=== PATIENT | female | born 1985 | race Caucasian/White ===

== ENCOUNTER 2024-03-10 22:07 | Inpatient (IN) ==
--- OUTSIDE RECORDS SUMMARY | 2024-03-10 22:12 | External Medical Summary | Summary of Care ---
Author Name Unknown Organization [facility] Address [address] [place] [address] Phone [phone] Care Team Providers Care Utilization Management Manager Name Role Phone Aníbal Chen MD Primary Care Provider [phone] Reason for Visit * Reason Onset Date Comments FYI 03/09/2024 Encounter Details Date Type Department Care Team (Late st Contact Info) Description 03/09/2024 Telephone Palliative Medicine [facility] [address] [address] Yumiko Fischer MD [address] [place] [address] FYI Allergies Active Allergy Reactions Criticality Noted Date Comments Morphine Edema face/lips/tongue High 12/06/2023 Naloxone Edema face/lips/tongue High 12/06/2023 headaches Penicillins 12/21/2007 Penicillins Hives 12/06/2023 Sulfa Antibiotics 12/21/2007 Sulfa Antibiotics Hives 12/06/2023 documented as of this encounter (statuses as of 03/09/2024) Medications Medication Sig Dispensed Refills Start Date End Date Status QUEtiapine Fumarate 100 MG Oral Tablet (SEROquel) Take 1 Tablet by mouth at bedtime. 10/24/2023 Active Venlafaxine HCl ER 75 MG Oral Capsule Extended Release 24 Hour (Effexor XR) Take 1 Capsule by mouth in the morning and 1 Capsule before bedtime. 10/11/2023 Active Polyethylene Glycol 3350 17 GM/SCOOP Oral Powder (Miralax) mix and take 17 g by mouth in the morning. 850 g 8 02/08/2024 Active Gabapentin 300 MG Oral Capsule (Neurontin)Indicat ions:Cancer related pain Take 1 Capsule by mouth in the morning and 1 Capsule at noon and 1 Capsule before bedtime. 60 Capsule 02/08/2024 Active Additional Information Patient not taking.Reported on 02/10/2024 Famotidine 20 MG Oral Tablet (Pepcid) Take 1 Tablet by mouth in the morning. 90 Tablet 02/08/2024 Active Additional Information Patient not taking.Reported on 02/10/2024 Prochlorperazine Maleate 10 MG Oral Tablet (Compazine)Indicat ions:Malignant neoplasm of anal canal (HCC) Take 1 Tablet by mouth every 6 hours as needed for Nausea. 30 Tablet 3 02/17/2024 Active documented as of this encounter (statuses as of 03/09/2024) Active Problems Problem Noted Date Diagnosed Date Malignant neoplasm of anal canal 02/16/2024 Encounter for antineoplastic chemotherapy 2023 Anal polyp 01/11/2024 Food insecurity 01/02/2024 Overview: Per [facility] Protocol Anxiety 12/06/2023 Anal fissure 12/06/2023 Rectal bleeding 12/06/2023 Moderate episode of recurrent major depressive d isorder 12/06/2023 Bipolar 2 disorder, major depressive episode Opioid dependence with opioid-induced disorder 0 12/06/2023 Abnormal cervical Papanicolaou smear 12/06/2023 Pelvic pain in female 12/06/2023 Asthma with severity to be determined 11/17/2009 Overview: Per Asthma Taxonomy ICD-10 update of inactive term Major depressive disorder Overview: ICD-10 update of inactive term Bipolar I disorder, most recent episode depresse d Overview: Bipolar Affective Disorder Depressed-Unspecified Panic disorder TATTOOS Tobacco use disorder documented as of this encounter (statuses as of 03/09/2024) Resolved Problems Problem Noted Date Diagnosed Date Resolved Date Asthma, allergic 11/17/2009 documented as of this encounter (statuses as of 03/09/2024) Immunizations Name Administration Dates Next Due COVID-19 mRNA, LNP-s, No Pre serve, 2-Dose Series (Moderna) 07/18/2021 COVID-19 mRNA, LNP-s, No Pre serve, 2-Dose Series (Pfizer) 10/27/2020,10/05/2020 Seasonal Influenza, Trivalent, (IIV3), PF, (Fluz one) 01/30/2024 TD - Tetanus/Diptheria (ADULT) 05/23/2003 documented as of this encounter Social History Tobacco Use Types Packs/Day Years Used Date Smoking Tobacco: Every Day Cigarettes 1 8 Passive Smoke Exposure: Current Smokeless Tobacco: Never Comments:started age 14 Alcohol Use Standard Drinks/Week Comments Not Currently 0 (1 standard drink = 0.6 oz pur e alcohol) social PHQ-2 Answer Date Recorded PHQ Adult Total Score 2 12/06/2023 Hunger Vital Sign Answer Date Recorded Within the past 12 months, y ou worried that your food would run out before you got the money to buy more. Often true 12/06/19 24 Within the past 12 months, t he food you bought just didn't last and you didn't have money to get more. Often true 12/06/2023 Childcare Answer Date Recorded Do you feel overwhelmed with taking care of a child, family member or friend? No 12/06/2023 Does your family need help f inding childcare? (Household - for ages 0-17 years) Not on file 12/06/2023 Clothing Answer Date Recorded Have you been unable to get clothing when it was really needed? Yes 12/06/2023 Is your family able to get c lothes or diapers when needed? (Household - for ages 0-17 years) Not on file 12/06/2023 Personal Safety Answer Date Recorded Do you feel unsafe or have concerns for your saf ety? Yes 12/06/2023 Do you have concerns for you r family's safety? (Household - for ages 0-17 years) Not on file 12/06/2023 Utilities Answer Date Recorded Do you have trouble paying y our heating, water, or electric bill? Yes 12/06/2023 Is your family able to pay t he heat, water, or electric bill? (Household - for ages 0-17 years) Not on file 12/06/2023 Does your family have access to good internet? (Household - for ages 0-17 years) Not on file 12/06/2023 Employment Status Answer Date Recorded Are you unemployed or without regular income? Ye s 12/06/2023 Does the household have a re gular source of income? (Household - for ages 0-17 years) Not on file 12/06/2023 Social Connections Answer Date Recorded How often do you feel lonely or isolated from th ose around you? Always 12/06/2023 Financial Resource Strain Answer Date R ecorded Do you have any trouble payi ng for your medications, or do you think you might in the future? Yes 12/06/2023 Does your family have troubl e paying for medicine? (Household - for ages 0-17 years) Not on file 12/06/2023 Transportation Needs Answer Date Record ed Do you have trouble getting a ride to medical visits or work? (Adult - for ages 18 years and over) Not on file 12/06/2023 Does your family have a hard time getting a ride to doctors visits? (Household - for ages 0-17 years) Not on file 12/06/2023 Has lack of transportation k ept you from medical appointments, meetings, work, or from getting things needed for daily living? Check all that apply. Yes, it has kept me from non-medical meetings, appointments, work, or from getting things that I need 12/06/2023 Do you (or your family) have trouble finding or paying for a ride (transportation)? (Household - for ages 0-17 years) Not on file 12/06/2023 Housing Stability Answer Date Recorded Do you currently live in a s helter or have no steady place to sleep at night? No 12/06/2023 Do you think you are at risk of becoming homeless? (Adult - for ages 18 years and over) Not on file 12/06/2023 Does your family worry about paying for your home or becoming homeless? (Household - for ages 0-17 years) Not on file 0 12/06/2023 Are you homeless or worried that you might be in the future? Yes 12/06/2023 Are you (or your family) jose angel eless or worried that you might be in the future? (Household - for ages 0-17 years) Not on file Food Insecurity Answer Date Recorded Do you need food for this week? Yes 12/06/2023 Are you able to get enough f ood for your family? (Household - for ages 0-17 years) Not on file 12/06/2023 Does your family need food t his week? (Household - for ages 0-17 years) Not on file 12/06/2023 Do you always have enough fo od for your family? (Household - for ages 0-17 years) Not on file 12/06/2023 Sex and Gender Information Value Date Recorded Sex Assigned at Female 12/12/2023 2:27 PM EDT Gender Identity Female 12/12/2023 2:27 PM EDT Sexual Orientation Straight 12/12/2023 2: 27 PM EDT Job Start Date Occupation Industry Not on file Not on file Not on file documented as of this encounter Miscellaneous Notes * Telephone Encounter - Yuki Guillen LPN - 03/09/2024 1:43 PM EDT Patient has established with [facility] Palliative medicine outpatient No longer followed by [facility] palliative medicine * Telephone Encounter - Judy Solares OSA - 03/09/2024 1:36 PM EDT TYE Martinez with Anesthesia from [facility] called to advise Dr. Fischer that Marguerite is schedule for a liver biopsy on Tuesday and one of their nurses called her and she was sobbing throughout the phone call because of the lower back pain she is experiencing from her cancer. She stated the nurse did advise her to go to the ER but wanted to make Dr. Fischer aware. Thank you. documented in this encounter Plan of Treatment Upcoming Encounters Date Type Department Care Team (Late st Contact Info) Description 03/28/2024 11:00 AM EST Office Visit General Surgery, [address] [place] [address] Lisa Velasquez, DO [address] [facility] [address] Health Maintenance Due Date Last Done Comments DISCUSS TOBACCO CESSATION (REFER TO SMARTSET #2912) 1984 Pneumococcal Vaccine: Pediatrics (0 to 5 Years) and At-Risk Patients (6 to 64 Years) (1 of 2 - PCV) 1990 Hepatitis B Vaccine (1 of 3 - 19+ 3-dose series) 2003 Pap Smear 12/20/2010 12/21/2007 (Done elsewhere) Cervical Cancer Screening 2014 HPV/Co-Test 2014 *SPIROMETRY ONCE FOR ASTHMA-ADULT 12/14/2023 COVID-19 Vaccine (2023-2 5 season) 2024 07/18/2021, 10/27/2020, 10/05/2020 Depression Monitoring 12/05/2024 12/06/2023 DTap/Tdap Vaccines (3 - Td o r Tdap) 11/20/2031 11/19/2021, 02/25/2017, 05/23/2003 Influenza Vaccine (FLU shot) Completed 01/30/2024 HPV (Gardasil) Vaccine Aged Out No lo nger eligible based on patient's age to complete this topic MENINGOCOCCAL (MENACTRA/MENVEO) Aged Out No longer eligible b ased on patient's age to complete this topic documented as of this encounter Medical Devices Implanted Type Area Medical Support Specialist Device Identifier Shelf Expiration Date Model / Serial / Lot Power Port 8fr Sngl Lumen Plas - [id number] Implanted:Qty : 1 on 02/10/2024 by Akhil Farfan MD at OR [facility] Right: Chest CR BARD : PERIPHERAL VASCULAR [id number] 07/20/2025 [id number] / / [id number] documented as of this encounter Advance Directives * Full Code (Latest Code Status on File) Date Activated Date Inactivated Comments 01/13/2024 11:22 AM 01/13/2024 4:09 PM This order reflects the patients wishes and were consensually agreed upon. Question Answer Comments Discussion of Advance Directives occurred with: Patient * Full Code Date Activated Date Inactivated Comments 01/13/2024 8:56 AM 01/13/2024 11:22 AM This order reflects the patients wishes and were consensually agreed upon. Question Answer Comments Discussion of Advance Directives occurred with: Patient Care Teams Utilization Management Manager Relationship Specialty Start Date End Date Aníbal Chen MD [address] [place] [address] PCP - General Internal Medicine 12/06/23 documented as of this encounter
--- OUTSIDE RECORDS SUMMARY | 2024-03-10 22:12 | External Medical Summary | Summary of Care ---
Author Name Unknown Organization [facility] Address [address] [place] [address] Phone [phone] Care Team Providers Care Concert Promoter Name Role Phone Aníbal Chen MD Primary Care Provider [phone] Reason for Visit * Reason Onset Date Comments FYI 03/09/2024 Encounter Details Date Type Department Care Team (Late st Contact Info) Description 03/09/2024 Telephone Palliative Medicine [facility] [address] [place] [address] Yumiko Fischer MD [address] [place] [address] FYI Allergies Active Allergy Reactions [...] 1:43 PM EDT Patient has established with [facility] Palliative medicine outpatient No longer followed by [facility] palliative medicine * Telephone Encounter - Judy Solares OSA - 03/09/2024 1:36 PM EDT TYE Martinez with Anesthesia from [facility] called to advise Dr. Fischer that Marguerite [...] 11:00 AM EST Office Visit General Surgery, [address] [place] [address] Lisa Velasquez, DO [address] [facility] [address] Health Maintenance Due Date Last Done Comments DISCUSS TOBACCO CESSATION (REFER TO SMARTSET #3076) 1984 Pneumococcal Vaccine: Pediatrics (0 to 5 [...] this encounter Medical Devices Implanted Type Area Patrol Officer Device Identifier Shelf Expiration Date Model / Serial / Lot Power Port 8fr Sngl Lumen Plas - [id number] Implanted:Qty : 1 on 02/10/2024 by Akhil Farfan MD at OR [facility] Right: Chest CR BARD : PERIPHERAL VASCULAR [id number] 07/20/2025 [id number] / / [id number] documented as of this encounter Advance Directives [...] Advance Directives occurred with: Patient Care Teams Concert Promoter Relationship Specialty Start Date End Date Aníbal Chen MD [address] [address] [address] PCP - General Internal Medicine 12/06/23 documented as of this encounter
--- OUTSIDE RECORDS SUMMARY | 2024-03-10 22:12 | External Medical Summary | Summary of Care ---
Author Name Unknown Organization [facility] Address [address] [place] [address] Phone [phone] Care Team Providers Care Varnish Inspector Name Role Phone Aníbal Chen MD Primary Care Provider [phone] Encounter Details Date Type Department Care Team (Late st Contact Info) Description 03/07/2024 Telephone Palliative Medicine, [facility] [address] [place] [address] Yumiko Fischer MD [address] [place], [place] [id number] Allergies Active Allergy Reactions Criticality Noted Date Comments Morphine Edema face/lips/tongue High 12/06/2023 Naloxone Edema face/lips/tongue High 12/06/2023 headaches Penicillins 12/21/2007 Penicillins Hives 12/06/2023 Sulfa Antibiotics 12/21/2007 Sulfa Antibiotics Hives 12/06/2023 documented as of this encounter (statuses as of 03/07/2024) Medications Medication Sig Dispensed Refills Start Date [...] as of this encounter (statuses as of 03/07/2024) Active Problems Problem Noted Date Diagnosed Date [...] as of this encounter (statuses as of 03/07/2024) Resolved Problems Problem Noted Date Diagnosed Date Resolved Date Asthma, allergic 11/17/2009 documented as of this encounter (statuses as of 03/07/2024) Immunizations Name Administration Dates Next Due COVID-19 [...] encounter Miscellaneous Notes * Telephone Encounter - Yumiko Fischer MD - 03/07/2024 8:38 AM EDT Reviewed case w/Nataliia Aceves NP, who is seeing patient for palliative care at [facility]. She will take over Marguerite's medications.Pt also saw Dr Giraldo for Oncology and Dr Middleton for Rad Onc No further [facility] palliative f/u needed Yumiko Fischer MD Palliative Medicine Physician [facility] documented in this encounter Plan of Treatment Upcoming Encounters Date Type Department Care Team (Late st Contact Info) Description 03/28/2024 11:00 AM EST Office Visit General Surgery, [facility] [address] [facility] [place] [address] Lisa Velasquez, DO [address] [facility] [place] [address] Health Maintenance Due Date Last Done Comments DISCUSS TOBACCO CESSATION (REFER TO SMARTSET #7101) 1984 Pneumococcal Vaccine: Pediatrics (0 to 5 Years) and At-Risk Patients (6 to 64 Years) (1 of 2 - PCV) 1990 Hepatitis B Vaccine (1 of 3 - 19+ 3-dose series) 2003 Pap Smear 12/20/2010 12/21/2007 (Done elsewhere) Cervical Cancer Screening 2014 HPV/Co-Test 2014 *SPIROMETRY ONCE FOR ASTHMA-ADULT 12/14/2023 COVID-19 Vaccine (4 - 2023-2 5 season) 2024 07/18/2021, 10/27/2020, 10/05/2020 Depression [...] this encounter Medical Devices Implanted Type Area Manager Decision Support Device Identifier Shelf Expiration Date Model / Serial / Lot Power Port 8fr Sngl Lumen Plas - [id number] Implanted:Qty : 1 on 02/10/2024 by Akhil Farfan MD at OR [facility] Right: Chest CR BARD : PERIPHERAL VASCULAR [id number] 07/20/2025 [id number] / / [id number] documented as of this encounter Advance Directives [...] Advance Directives occurred with: Patient Care Teams Varnish Inspector Relationship Specialty Start Date End Date Aníbal Chen MD [address] [place] [id number] PCP - General Internal Medicine 12/06/23 documented as of this encounter
--- NOTE | 2024-03-10 22:36 | Emergency Department Note ---
Impression & Plan Rectal pain, Anal cancer, Metastatic cancer to liver ED Provider Note CHIEF COMPLAINT: Rectal pain HISTORY OF PRESENTING ILLNESS: This 38-year-old female patient presents emergency department for evaluation of a lesion near the rectal area. The patient states that she has a history of rectal cancer that metastasized into her liver. The patient states that she was diagnosed last month, but not actively being treated for cancer at this time. She has discomfort into her groin and genitals and into her back from the lesion. She rates her discomfort as 9/10. The patient states that the size of the perianal lesion has gotten progressively larger. She feels like it is cutting off circulation and is concerned it may be an abscess or something different at this time. She is concerned about how fast the lesion is growing if it is only a tumor. Upon review of the patient's medical records, she was seen by radiation oncology on 02/29/2024. 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 She was seen by medical oncology and initiated pain medication and palliative care was staging CT scan of the chest, abdomen, and pelvis as well as MRI of the pelvis. This revealed diffuse thickening of the anal canal with enlarged right mesorectal lymph nodes concerning for metastasis. There was also a low-density hepatic lesion that was not present on prior exam in December. The patient also had multiple small bilateral lung nodules of uncertain significance. MRI of the pelvis showed a low rectal/anal mass with mesorectal lymph node metastases stage [id number] N1 stage IIIc. Unfortunately there were issues with pegylated of care and appropriate urinary testing recommendations because the patient has no personal transportation. The patient is to have a staging PET scan and liver biopsy performed as well as initiation of a systemic therapy after liver status confirmed. They are considering initiating radiation to the pelvis as well based on the results of further testing. The patient saw Dr. Giraldo on 03/06/2024. The patient is still awaiting PET scan and liver biopsy results. She does have a Mediport in place and is to be started on 5-FU plus mitomycin C with radiation therapy. The patient has a longstanding history of substance abuse per the note and she is working closely with palliative medicine for control of her pain. The patient was given a prescription for fentanyl patches. She has her liver biopsy and PET scan scheduled for later this week. REVIEW OF SYSTEMS: See HPI for pertinent positives and pertinent negatives. ALLERGIES: Naloxone, amoxicillin, PCN, sulfa MEDICATIONS: See below PAST MEDICAL HISTORY: See below PHYSICAL EXAM: VITALS: Vitals are noted on the nurse's note and reviewed by myself. GENERAL: Non toxic, no acute distress, non-diaphoretic. SKIN: Capillary refill <2 sec. EYES: PERRLA. EOMI. Conjunctivae without injection, sclerae without icterus. NOSE: Patent without discharge. MOUTH: Mucous membranes moist. Uvula midline. Airway patent. NECK: Supple without nuchal rigidity. HEART: Regular rate and rhythm without murmurs gallops or rubs. LUNGS: Clear to auscultation bilaterally without wheezes, rales or rhonchi. No retractions or accessory muscle use. ABDOMEN: Positive bowel sounds x 4. Normal tympanic percussion. Soft, nontender. No masses or organomegaly. Quintero sign negative. No guarding or rebound tenderness. No focal RLQ or LLQ tenderness. RECTAL: Permission to perform the exam. 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 The patient has a hard indurated painful lesion in the perianal region extending from the inferior portion of the vagina to the rectum. There is development of a partial tear that appears chronic rather than acute. No significant erythema or warmth. No obvious fluctuance. NEURO: Patient was alert and oriented. No focal neurological deficits. DIFFERENTIAL DIAGNOSIS: Differential diagnosis includes anal cancer, abscess, cellulitis, metastases, or other etiologies. ED COURSE AND MEDICAL DECISION MAKING: MEDICATIONS GIVEN: 500 mL normal saline solution bolus. Toradol 10 mg IV. Tylenol 1000 mg IV. INTERPRETATION OF LABS: I interpreted the labs with full lab results as below in the lab section of this note. Pertinent lab results discussed in the MDM section below. INTERPRETATION OF IMAGING: Imaging studies were interpreted by myself and read by radiology as per the imaging section of this note. CT scan of the abdomen pelvis with IV contrast shows an indeterminate low-attenuation lesion in the right hepatic lobe measuring 2.1 x 1.6 cm and 2.4 x 2.1 cm adjacent to the IVC. Both are increased in size when compared to imaging from 02/15/2024. Nonemergent MRI recommended for evaluation of the likely metastasis. Moderate fecal retention consistent with possible constipation. Severe wall thickening of the rectum measuring up to 2.1 cm with findings concerning for rectal cancer versus severe proctitis. EXTERNAL RECORDS REVIEWED: I reviewed the patient's outpatient medical oncology and radiation oncology office visits as summarized above. CONSULTATIONS: On-call hospitalist MDM SUMMARY: I examined the patient. The patient was recently diagnosed with anal cancer as above. She is awaiting for results of her liver biopsy and PET scan better scheduled later this week prior to starting chemotherapy and radiation. The patient feels like the lesion is getting progressively larger and more painful and is concerned about the sudden increase in size. The patient is concerned that there is something more going on than her rectal cancer. An IV lock was placed and labs were drawn. The patient was given 500 mL normal saline solution bolus, Toradol 10 mg IV, and Tylenol 1000 mg IV. The patient has a hard indurated painful lesion in the perianal region extending from the inferior portion of the vagina to the rectum. No fluctuance, erythema, warmth, pointing, discharge, or lymphatic streaking. I suspect the lesion is secondary to her known rectal cancer. The patient does have what appears to be a chronic tear/fissure from the enlarging mass. No discharge from the lesion and no evidence for infection based on exam. The patient had a history of this in November upon review of surgical notes. White blood cell count normal at 8.79. Hemoglobin low at 9.3. Platelet count normal at 332. Coags were normal. Glucose 121 and alk phos 126, but CMP otherwise without acute abnormalities. Lipase normal. Serum hCG negative. Urinalysis appears contaminated rather than infected with urine culture still pending. CT scan of the abdomen pelvis with IV contrast shows an indeterminate low- attenuation lesion in the right hepatic lobe measuring 2.1 x 1.6 cm and 2.4 x 2.1 cm adjacent to the IVC. Both are increased in size when compared to imaging from 02/15/2024. Nonemergent MRI recommended for evaluation of the likely metastasis. Moderate fecal retention consistent with possible constipation. Severe wall thickening of the rectum measuring up to 2.1 cm with findings concerning for rectal cancer versus severe proctitis. The patient has not started treatment for her annual cancer yet since they are waiting for liver biopsy and PET scan results. It appears that nonsurgical intervention is recommended at this time. No evidence for abscess on exam or by CT scan findings. The anal lesion on exam appears consistent with her known cancer. The patient has been prescribed pain medication by oncology at home, but she states that she is unable to tolerate the pain and discomfort at home. The patient wishes to be admitted for further management of her symptoms. I spoke with the on-call hospitalist who agreed to admit the patient for further evaluation and treatment. Please refer to his dictation for further details. The patient's care was transferred in stable condition. DIAGNOSIS: Rectal pain Anal cancer Metastatic cancer to liver Past Med/Surg History Problem List (Updated 03/11/24 @ 21:02 by Cassidy Pham PA-C) Rectal pain (Acute) Chronic blood loss anemia Chronic lower gastrointestinal bleeding Metastatic cancer to liver (Acute) Acute lower GI bleeding Encounter for pre-operative examination Palliative care by specialist Cancer related pain Anal cancer (Acute) Rectal abnormality (Acute) Asthma Skin tag of anus Anal fissure Medical History (Updated 03/11/24 @ 21:02 by Cassidy Pham PA-C) Pulmonary nodule Hepatic lesion History of anal fissures Hx of fracture (2018) right wrist, no surgery Cancer related pain pt sobbing in severe pain at site of anal cancer/lower back throughout entire call, difficult to understand at times, asked if there was someone else she wanted this rn to speak with, reported, "there is no one else." encouraged to be seen in ed but pt. reports "they don't do anything for me." Asthma no inhalers Anal cancer no chemo or radiation Port-A-Cath in place right, power port Panic disorder Anxiety Depression Bipolar disorder Allergic rhinitis Surgical History (Updated 03/09/24 @ 13:14 by Viri Holder) History of infusaport central venous catheter insertion right side power port History of carpal tunnel surgery of right wrist H/O excision of mass (01/13/24) Under anesthesia excision lesion at anus H/O tubal ligation History of delivery x2 History of tonsillectomy and adenoidectomy Family History Father , 50yo Cancer Pt uncertain of type of cancer Mother , 45yo Myocardial infarction Brother Cancer Pt believes her brother is going through the same thing that she is Brother No problems noted. Brother No problems noted. Sister No problems noted. Son No problems noted. Daughter No problems noted. Daughter No problems noted. Social History (Updated 02/29/24 @ 13:26 by Carolee Weber RN) Smoking Status: Current every day smoker Tobacco Type: Cigarettes Cigarettes Per Day: 4; Second Hand Exposure: No; Do You Dip or Chew Tobacco: No; Tobacco Cessation Education Requested by Patient: No Hx Alcohol Use: No Hx Substance Use: No Preferred Language: Tongan Communication Ability: Effective Visual Impairment: No Limitations Hearing Ability: Normal Stone Cutter Required: No Beliefs That Will Affect Care: None marital status: Legally Current Living Situation: Other Current Living Situation Comment: Roommate current occupational status: unemployed How many Children do You have: 3 Other Information That Helps Us Care for You: No Feels Safe at Home: Yes Safety Concerns: Feels Safe At This Time Diet: regular caffeine: Yes (3 cups/day) during the past year weight has: remained stable Assistive Devices: None Allergies Allergies Allergy/AdvReac Type Severity Reaction Status Date / Time naloxone Allergy Severe edema Verified 03/09/24 12:49 amoxicillin Allergy Intermediate Hives Verified 03/09/24 12:49 Penicillins Allergy Intermediate Hives Verified 03/09/24 12:49 Sulfa (Sulfonamide Allergy Intermediate Hives Verified 03/09/24 12:49 Antibiotics) Home Meds Home Medications Medication Instructions Recorded Confirmed polyethylene glycol 3350 17 17 g PO QAM Constipation 01/06/24 03/11/24 gram/dose oral powder acetaminophen 325 mg tablet 650 mg PO QID PRN Pain 02/29/24 03/11/24 (Tylenol) buprenorphine HCl 8 mg sublingual 8 mg sublingual BID 02/29/24 03/11/24 tablet ibuprofen 200 mg tablet (Motrin IB) 400 mg PO Q6H PRN Pain 02/29/24 03/11/24 quetiapine 100 mg tablet 100 mg PO HS Sleep 02/29/24 03/11/24 duloxetine 30 mg capsule,delayed 30 mg PO QAM 03/09/24 03/11/24 release famotidine 20 mg tablet 20 mg PO DAILY PRN Heartburn 03/11/24 03/11/24 Previous Rx's Medication Instructions Recorded oxycodone-acetaminophen 2.5 mg-325 1 tab PO Q8H PRN very severe 03/06/24 mg tablet (Percocet) cancer pain 1 month #90 tabs Results & Data (ED) Vital Signs Vital Signs - 24 hr 03/10/24 22:11 03/10/24 23:08 03/10/24 23:16 Temperature 36.8 C Temperature Source Temporal Artery Scan Pulse Rate 100 H 81 88 Respiratory Rate 16 20 Blood Pressure 145/86 H Blood Pressure Mean 105 Pulse Oximetry 100 100 Oxygen Delivery Method Room Air Sepsis Recent Fever Within 48 Hours No Sepsis New/Unexplained Change in Mental Status No Sepsis Action Taken by Nursing No Action Required 03/10/24 23:23 03/10/24 23:30 03/11/24 00:30 Temperature Temperature Source Pulse Rate 86 86 83 Respiratory Rate 20 14 18 Blood Pressure 119/77 107/66 121/72 Blood Pressure Mean 82 79 88 Pulse Oximetry 100 100 100 Oxygen Delivery Method Room Air Room Air Room Air Sepsis Recent Fever Within 48 Hours Sepsis New/Unexplained Change in Mental Status Sepsis Action Taken by Nursing 03/11/24 01:00 03/11/24 01:21 03/11/24 02:00 Temperature Temperature Source Pulse Rate 83 80 82 Respiratory Rate 18 16 15 Blood Pressure 145/82 H 124/76 114/84 Blood Pressure Mean 111 95 94 Pulse Oximetry 100 100 100 Oxygen Delivery Method Room Air Room Air Room Air Sepsis Recent Fever Within 48 Hours Sepsis New/Unexplained Change in Mental Status Sepsis Action Taken by Nursing 03/11/24 03:03 03/11/24 03:12 03/11/24 04:00 Temperature Temperature Source Pulse Rate 73 72 71 Respiratory Rate 12 13 Blood Pressure 128/92 127/81 Blood Pressure Mean 104 96 Pulse Oximetry 100 99 Oxygen Delivery Method Room Air Room Air Sepsis Recent Fever Within 48 Hours Sepsis New/Unexplained Change in Mental Status Sepsis Action Taken by Nursing Laboratory Data 03/11/24 07:42 03/11/24 07:42 Lab Results 03/10/24 03/11/24 03/11/24 Range/Units 23:00 00:00 00:01 WBC 8.79 (4.8-10.8) K/ul RBC 3.41 L (4.20-5.40) M/uL Hgb 9.3 L (12.0-16.0) g/dl Hct 28.8 L (37.0-47.0) % MCV 84.5 (80.0-100.0) fL MCH 27.3 (25.0-34.0) pg MCHC 32.3 (32.0-36.0) g/dL RDW Std Deviation 42.5 (36.4-46.3) fL RDW Coeff of Pramod 13.7 (11.5-14.5) % Plt Count 332 (130-400) K/uL MPV 9.3 L (9.4-12.4) fL Immature Gran % (Auto) 0.1 % Neut % (Auto) 59.3 % Lymph % (Auto) 29.4 % Castro % (Auto) 8.2 % Eos % (Auto) 2.5 % Baso % (Auto) 0.5 % Neut # (Auto) 5.22 (1.40-6.50) K/uL Lymph # (Auto) 2.58 (1.20-3.40) K/uL Castro # (Auto) 0.72 H (0.11-0.59) K/uL Eos # (Auto) 0.22 (0.00-0.50) K/uL Baso # (Auto) 0.04 (0.00-0.20) K/uL Immature Gran # (Auto) 0.01 (0.01-0.20) K/uL PT 11.6 (9.0-12.0) Seconds INR 1.1 (0.9-1.1) APTT 28 (21-31) Seconds PTT Ratio 1.0 Sodium 138 (136-145) mmol/L Potassium 4.0 (3.5-5.1) mmol/L Chloride 101 (98-107) mmol/L Carbon Dioxide 33 H (21-32) mmol/L Anion Gap 4 (3-11) BUN 9 (6-23) mg/dl Creatinine 0.73 (0.6-1.2) mg/dl Est Cr Clr Drug Dosing 87.1 ml/min eGFR 107.22 BUN/Creatinine Ratio 12.3 (10-20) Glucose 121 H (70-99(Fasting)) mg/dl Estimat Average Glucose 105 mg/dl Hemoglobin A1c 5.3 (4.5-5.6) % Calcium 9.3 (8.6-10.3) mg/dl Total Bilirubin 0.2 (0.2-1.0) mg/dl AST 13 (13-39) U/L ALT 8 (7-52) U/L Alkaline Phosphatase 126 H (34-104) U/L Total Protein 6.9 (6.0-8.3) gm/dl Albumin 4.0 (3.4-5.0) gm/dl Globulin 2.9 (2.5-4.0) gm/dl Albumin/Globulin Ratio 1.4 (0.9-2) Lipase 11 (11-82) U/L HCG, Qual Negative (Negative) Urine Color Yellow Urine Appearance Cloudy A (Clear) Urine pH 6.0 (4.5-7.5) Ur Specific [place] 1.017 (1.000-1.030) Urine Protein Negative (Negative) Urine Glucose (UA) Negative (Negative) Urine Ketones Negative (Negative) Urine Blood Negative (Negative) Urine Nitrite Negative (Negative) Urine Bilirubin Negative (Negative) Urine Urobilinogen Negative (Negative) Ur Leukocyte Esterase Trace H (Negative) Urine WBC (Auto) 6-10 H (0-5) /hpf Urine RBC (Auto) 0-2 (0-2) /hpf U Hyaline Cast (Auto) 0-2 (0-2) /lpf U Epithel Cells (Auto) 6-10 H (0-2) /hpf Urine Bacteria (Auto) 4+ H (None Seen) Urine Opiates Screen Neg (Neg) Ur Methadone, Qual Neg (Neg) Urine Fentanyl Screen Neg (Neg) Urine Barbiturates Neg (Neg) Ur Phencyclidine (PCP) Neg (Neg) U Amphetamin/Meth Scrn Pos H (Neg) MDMA (Ecstasy) Screen Pos H (Neg) U Benzodiazepines Scrn Neg (Neg) Ur Cocaine Metabolite Neg (Neg) U Marijuana (THC) Screen Pos H (Neg) Administered Medications Acetaminophen (Acetaminophen 500 Mg Tab) 1,000 mg PO TID [facility] Stop: 04/10/24 08:59 Last Admin: 03/11/24 20:00 Dose: 1,000 mg Documented By: Admin: 03/11/24 14:36 Dose: 1,000 mg Documented By: Admin: 03/11/24 08:58 Dose: 1,000 mg Documented By: CMV Gabapentin (Gabapentin 100 Mg Cap) 100 mg PO TID [facility] Stop: 04/10/24 09:59 Last Admin: 03/11/24 19:56 Dose: 100 mg Documented By: Admin: 03/11/24 14:33 Dose: 100 mg Documented By: Admin: 03/11/24 11:23 Dose: 100 mg Documented By: CMV Heparin Sodium (Porcine) (Heparin 100 Unit/Ml 5ml Flush) 5 ml FLUSH PRN PRN PRN Reason: Flush Stop: 04/10/24 09:12 Last Admin: 03/11/24 09:38 Dose: 5 ml Documented By: LETTY Lactulose (Lactulose Syrup 20 Gm/30 Ml Udc) 20 gm PO BID [facility] Stop: 04/10/24 08:59 Last Admin: 03/11/24 19:57 Dose: 20 gm Documented By: Admin: 03/11/24 08:55 Dose: 20 gm Documented By: CMV Oxycodone HCl (Oxycodone Hcl Ir 5 Mg Tab (Immediate Release)) 5 mg PO Q4H PRN PRN Reason: Pain Stop: 03/25/24 03:39 Last Admin: 03/11/24 18:45 Dose: 5 mg Documented By: Admin: 03/11/24 13:15 Dose: 5 mg Documented By: Admin: 03/11/24 06:11 Dose: 5 mg Documented By: ELS Oxycodone HCl (Oxycodone Hcl 10 Mg Tabcr (Oxycontin)) 10 mg PO Q12 [facility] Stop: 03/25/24 07:59 Last Admin: 03/11/24 20:01 Dose: 10 mg Documented By: Admin: 03/11/24 08:58 Dose: 10 mg Documented By: CMV Polyethylene Glycol (Polyethylene (Miralax) 17 Gm Pack) 17 gm PO QAM [facility] Stop: 04/10/24 08:59 Last Admin: 03/11/24 08:58 Dose: 17 gm Documented By: CMV Quetiapine Fumarate (Quetiapine Fumarate 100 Mg Tablet) 100 mg PO HS [facility] Stop: 04/10/24 20:59 Last Admin: 03/11/24 19:56 Dose: 100 mg Documented By: EFK Discontinued Medications Sodium Chloride (Nss) 500 mls @ 999 mls/hr IV .Q31M ONE Stop: 03/11/24 00:35 Last Infusion: 03/11/24 01:26 Dose: Infused Documented By: Admin: 03/11/24 00:26 Dose: 999 mls/hr Documented By: Acetaminophen (Ofirmev) 1,000 mg in 100 mls @ 400 mls/hr IV NOW STA Stop: 03/11/24 02:16 Last Infusion: 03/11/24 02:38 Dose: Infused Documented By: Admin: 03/11/24 02:10 Dose: 400 mls/hr Documented By: SOFIYA Doxycycline Hyclate 100 mg/ (Dextrose) 100 mls @ 50 mls/hr IV NOW STA Stop: 03/11/24 06:32 Last Infusion: 03/11/24 07:51 Dose: Infused Documented By: Admin: 03/11/24 04:57 Dose: 50 mls/hr Documented By: KEM Ioversol (Optiray 320 100ml) 94 ml IV ONCE ONE Stop: 03/11/24 00:11 Last Admin: 03/11/24 00:10 Dose: 94 ml Documented By: ALISON Ketorolac Tromethamine (Ketorolac Tromethamine 15 Mg/Ml Vial) 10 mg IV NOW ONE Stop: 03/10/24 22:45 Last Admin: 03/10/24 23:15 Dose: 10 mg Documented By: KEM Quetiapine Fumarate (Quetiapine Fumarate 100 Mg Tablet) 100 mg PO DAILY LINH Stop: 04/10/24 08:59 Last Admin: 03/11/24 09:10 Dose: Not Given Documented By: CMV Discharge Plan Visit Data Chief Complaint: Rectal Pain Stated Complaint: RECTAL CANCER, ?MASS GROWING, BACK PAIN ED Provider: Analia Shah ED Midlevel Provider: Cassidy Pham Discharge Problem: Rectal pain, Anal cancer, Metastatic cancer to liver Patient Disposition: Admitted As Inpatient Condition: Good Discharge Instructions Interventions: ED Discharge Assessment Last Done: 03/11/24 05:31
[2024-03-10] MEDS: KETOROLAC TROMETHAMINE 15 MG/ML VIAL IV ONE (23:15)
[2024-03-10 23:18] LABS: Basophils # (auto) 0.04 K/uL (0.00-0.20); Basophils % (auto) 0.5 %; Eosinophils # (auto) 0.22 K/uL (0.00-0.50); Eosinophils % (auto) 2.5 %; Hematocrit (blood only) 28.8 % (37.0-47.0); Hemoglobin 9.3 g/dl (12.0-16.0); Immature Granulocytes # (auto) 0.01 K/uL (0.01-0.20); Immature Granulocytes % (auto) 0.1 %; Lymphocytes # (auto) 2.58 K/uL (1.20-3.40); Lymphocytes % (auto) 29.4 %; Mean Corpuscular Hemoglobin 27.3 pg (25.0-34.0); Mean Corpuscular Hgb Conc 32.3 g/dL (32.0-36.0); Mean Corpuscular Volume 84.5 fL (80.0-100.0); Mean Platelet Volume 9.3 fL (9.4-12.4); Monocytes # (auto) 0.72 K/uL (0.11-0.59); Monocytes % (auto) 8.2 %; Neutrophils # (auto) 5.22 K/uL (1.40-6.50); Neutrophils % (auto) 59.3 %; Platelet Count 332 K/uL (130-400); RDW Coefficient of Variation 13.7 % (11.5-14.5); RDW Standard Deviation 42.5 fL (36.4-46.3); Red Blood Count 3.41 M/uL (4.20-5.40); White Blood Count 8.79 K/ul (4.8-10.8)
[2024-03-10 23:31] LABS: Pregnancy Test, Serum Negative (Negative)
[2024-03-10 23:36] LABS: Albumin Globulin Ratio 1.4 (0.9-2); BUN Creatinine Ratio 12.3 (10-20); Bilirubin,Total 0.2 mg/dl (0.2-1.0); Calcium 9.3 mg/dl (8.6-10.3); Creatinine Clr Calc Pharmacy 87.1 ml/min; Globulin 2.9 gm/dl (2.5-4.0); Total Protein 6.9 gm/dl (6.0-8.3)
[2024-03-10 23:48] LABS: INR 1.1 (0.9-1.1); Partial Thromboplastin Time 28 Seconds (21-31); Prothrombin Time 11.6 Seconds (9.0-12.0)
[2024-03-11] MEDS: OPTIRAY 320 100ml IV ONE (00:10)
[2024-03-11] MEDS: SODIUM CHLORIDE 0.9% 500 ML IV ONE (00:26)
[2024-03-11 00:39] LABS: Appearance Urine Cloudy (Clear); Bacteria Urine Automated 4+ (None Seen); Bilirubin Urine Negative (Negative); Blood Urine Negative (Negative); Cast Urine Automated 0-2 /lpf (0-2); Color Urine Yellow; Glucose Urine UA Negative (Negative); Ketones Urine Negative (Negative); Leukocyte Esterase Urine Trace (Negative); Nitrite Urine Negative (Negative); Protein Urine Negative (Negative); RBC Urine Automated 0-2 /hpf (0-2); Specific Gravity Urine 1.017 (1.000-1.030); Urobilinogen Urine Negative (Negative)
[2024-03-11] MEDS: ACETAMINOPHEN 1,000 MG/100 ML VIAL IV STA (02:10)
--- NOTE | 2024-03-11 02:28 | CT Scan Report ---
Exam(s): CT ABDOMEN + PELVIS With Contrast IV Amt: OPTIRAY 320 94ML EXAM: CT Abdomen and Pelvis With Intravenous Contrast CLINICAL HISTORY: Reason for exam: Painful perianal mass, h/o cancer, eval abscess. TECHNIQUE: Axial computed tomography images of the abdomen and pelvis with intravenous contrast. Automated exposure control was utilized for the study. A dose lowering technique was utilized adhering to the principles of ALARA. CONTRAST: Patient received OPTIRAY 320 94ML of IV contrast COMPARISON: CT February 15, 2024. FINDINGS: Lung bases: Unremarkable. No mass. No consolidation. ABDOMEN: Liver: Indeterminate low-attenuation lesion in the RIGHT hepatic lobe measures 2.1 x 1.6 cm and 2.4 x 2.1 cm adjacent to the IVC, both are increasing in size when compared to February 15, 2024. Nonemergent MRI recommended. Gallbladder and bile ducts: Unremarkable. No calcified stones. No ductal dilation. Pancreas: Unremarkable. No mass. No ductal dilation. Spleen: Unremarkable. No splenomegaly. Adrenals: Unremarkable. No mass. Kidneys and ureters: Unremarkable. No solid mass. No hydronephrosis. Stomach and bowel: Moderate fecal retention, correlate for constipation. No obstruction. No mucosal thickening. PELVIS: Appendix: No findings to suggest acute appendicitis. Bladder: Unremarkable. No mass. Reproductive: Unremarkable as visualized. ABDOMEN and PELVIS: Intraperitoneal space: Unremarkable. No free air. No significant fluid collection. Bones/joints: No acute fracture. No dislocation. Soft tissues: Unremarkable. Vasculature: Unremarkable. No abdominal aortic aneurysm. Lymph nodes: Unremarkable. No enlarged lymph nodes. IMPRESSION: 1. Indeterminate low-attenuation lesion in the RIGHT hepatic lobe measures 2.1 x 1.6 cm and 2.4 x 2.1 cm adjacent to the IVC, both are increasing in size when compared to February 15, 2024. Patient has a history of cancer. Metastasis not excluded. Nonemergent MRI recommended. 2. Moderate fecal retention, correlate for constipation. Electronically signed by: Sajan Silverio MD 03/11/24 02:27 AM
[2024-03-11] MEDS ORDERED: ACETAMINOPHEN 325 MG TAB PO PRN (03:40)
[2024-03-11] MEDS ORDERED: PROMETHAZINE 6.25 MG/50.25 ML BAG IV PRN (03:40)
[2024-03-11] MEDS ORDERED: KETOROLAC TROMETHAMINE 15 MG/ML VIAL IV PRN (04:31)
--- NOTE | 2024-03-11 04:34 | History & Physical Report ---
Date of Service March 11, 2024 Assessment & Plan (1) Acute lower GI bleeding: Plan: Subacute LGIB since since last month from anal cancer with superimposed proctitis acute on chronic anemia secondary to above Worsening cancer pain, hx chronic pain, patient claims to have stopped her buprenorphine since last week due to issues procuring new opioid prescriptions from new cancer providers. Bronchial asthma, not in exacerbation Anxiety/patient not suicidal mood disorder Hyperglycemia ro DM ongoing tobacco abuse Admit to [facility] Doxycycline for proctitis Anemia workup, transfuse PRBC if hemoglobin less than 7 and or for symptomatic anemia Oxycodone as needed for now while patient off Subutex Oncology consultation regarding patient's worsening cancer pain (Patient known to Dr. Giraldo.) IR guided liver biopsy as scheduled tomorrow a.m. Check hemoglobin A1c Nicotine replacement Rx as needed DVT prophylaxis. SCDs re: rectal bleed Full code Text document was generated using [employer] voice recognition software. It may contain grammatical or spelling errors. Kindly contact undersigned for clarification of any documentation item in question. History of Present Illness Primary Care Provider: Aníbal Chen MD History obtained from patient and records. Medical history significant for anal cancer, chronic anemia (baseline hemoglobin of 11), bronchial asthma, chronic pain on buprenorphine, anxiety/mood disorder, ongoing tobacco abuse Patient recently diagnosed to have anal cancer last month. Staging CT chest abdomen pelvis showed low-density hepatic lesions and multiple small bilateral lung nodules. Outpatient pelvic MRI pelvis showedLow rectal/anal mass with anal sphincter involvement, T4b with mesorectal lymph node metastases. Chemoradiation recommended by G oncologist. 2 [facility] ER visits last month for worsening rectal pain with bleeding. CT from recent ER visit from 02/14 showed 1. Circumferential mucosal thickening is noted in the perianal region inferior to the pelvic floor. The single wall thickness is similar, measuring up to 2.1 cm. However, centrally, the mucosa appears slightly hypoattenuating, suggesting potential intramural edema. No fat stranding in the perirectal or ischiorectal fat. No definite further cranial extension. Similar nonspecific pericolonic lymph nodes adjacent to the hemorrhoidal vasculature. 2. Prominent stool burden throughout the colon. The appearance suggests a component of constipation. 3. There is an ovoid hypoattenuating area in the central aspect of the right lobe of the liver measuring 1.4 x 1.4 x 1.3 cm. This is larger from the most recent examination, and is new from the examination in December. This is a presumed incidental finding; however, the appearance is most consistent with advancing hepatic metastatic disease. [place] [facility] [place] last 02/28. Specialist recommended staging PET/CT, and liver biopsy of suspicious right liver lobe lesion. Outpatient liver biopsy tentatively scheduled at [facility] tomorrow. Patient recently switched to [facility] for oncology services and [facility] Palliative care this week. Separate prescriptions for fentanyl and Percocet from respective providers for patient's worsening rectal pain could not be picked up from pharmacy until clarification from providers as per patient. Patient stopped taking her Subutex last week on her own thinking this was related to the issue. Think she might have gone into some withdrawal. Patient consulted ER for worsening rectal pain with bleeding. No chest pain, no SOB. No fever, no chills. Denies emesis. 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 Allergies Allergy/AdvReac Type Severity Reaction Status Date / Time naloxone Allergy Severe edema Verified 03/09/24 12:49 amoxicillin Allergy Intermediate Hives Verified 03/09/24 12:49 Penicillins Allergy Intermediate Hives Verified 03/09/24 12:49 Sulfa (Sulfonamide Allergy Intermediate Hives Verified 03/09/24 12:49 Antibiotics) Home Medications Medication Instructions Recorded Confirmed Type polyethylene glycol 3350 17 17 g PO QAM Constipation 01/06/24 03/11/24 History gram/dose oral powder acetaminophen 325 mg tablet 650 mg PO QID PRN Pain 02/29/24 03/11/24 History (Tylenol) buprenorphine HCl 8 mg sublingual 8 mg sublingual BID 02/29/24 03/11/24 History tablet ibuprofen 200 mg tablet (Motrin IB) 400 mg PO Q6H PRN Pain 02/29/24 03/11/24 History quetiapine 100 mg tablet 100 mg PO HS Sleep 02/29/24 03/11/24 History oxycodone-acetaminophen 2.5 mg-325 1 tab PO Q8H PRN very severe 03/06/24 03/11/24 Rx mg tablet (Percocet) cancer pain 1 month #90 tabs duloxetine 30 mg capsule,delayed 30 mg PO QAM 03/09/24 03/11/24 History release famotidine 20 mg tablet 20 mg PO DAILY PRN Heartburn 03/11/24 03/11/24 History Past Med/Surg History Problem List (Updated 03/11/24 @ 05:31 by Angelito Iyer MD) Acute lower GI bleeding Encounter for pre-operative examination Palliative care by specialist Cancer related pain Anal cancer (Acute) Rectal abnormality (Acute) Asthma Skin tag of anus Anal fissure Medical History (Updated 03/11/24 @ 05:31 by Angelito Iyer MD) Pulmonary nodule Hepatic lesion History of anal fissures Hx of fracture (2018) right wrist, no surgery Cancer related pain pt sobbing in severe pain at site of anal cancer/lower back throughout entire call, difficult to understand at times, asked if there was someone else she wanted this rn to speak with, reported, "there is no one else." encouraged to be seen in ed but pt. reports "they don't do anything for me." Asthma no inhalers Anal cancer no chemo or radiation Port-A-Cath in place right, power port Panic disorder Anxiety Depression Bipolar disorder Allergic rhinitis Surgical History (Updated 03/09/24 @ 13:14 by Viri Holder) History of infusaport central venous catheter insertion right side power port History of carpal tunnel surgery of right wrist H/O excision of mass (01/13/24) Under anesthesia excision lesion at anus H/O tubal ligation History of delivery x2 History of tonsillectomy and adenoidectomy Family History Father , 50yo Cancer Pt uncertain of type of cancer Mother , 45yo Myocardial infarction Brother Cancer Pt believes her brother is going through the same thing that she is Brother No problems noted. Brother No problems noted. Sister No problems noted. Son No problems noted. Daughter No problems noted. Daughter No problems noted. Social History (Updated 02/29/24 @ 13:26 by Carolee Weber RN) Smoking Status: Current every day smoker Tobacco Type: Cigarettes Cigarettes Per Day: "a few cigarettes" (Advised); Second Hand Exposure: No; Do You Dip or Chew Tobacco: No; Hx Alcohol Use: No Hx Substance Use: No Preferred Language: Thai Communication Ability: Effective Visual Impairment: No Limitations Hearing Ability: Normal [place] Headgate Operator Required: No Beliefs That Will Affect Care: None marital status: Legally Current Living Situation: Significant Other Current Living Situation Comment: friend current occupational status: unemployed How many Children do You have: 3 Feels Safe at Home: Yes Diet: regular caffeine: Yes (3 cups/day) during the past year weight has: remained stable Assistive Devices: Denture - Upper Review of Systems Review of Systems: As per HPI, all other systems reviewed and negative Physical Exam Physical Exam: GENERAL: Comfortable, looks older than stated age, no respiratory distress SKIN: Pallor, warm HEENT: Pale palpebral conjunctivae, no ptosis, dry buccal mucosa NECK : Supple, no tenderness CHEST : Decreased breath sounds, no tenderness HEART : RRR, no obvious murmurs ABDOMEN: no distention, nontender RECTAL : Dried blood perianal area and over anal mucosa, anal tenderness EXTREMITIES : No LE swelling/tenderness, no other conspicuous deformities noted NEUROLOGIC : Coherent, no facial asymmetry, no other gross focality Results & Data Results & Data Vital Signs (Past 12 Hours) Vital Signs Temp Pulse Resp BP Pulse Ox O2 Del Method 03/11/24 04:00 71 13 127/81 99 Room Air 03/11/24 03:12 72 03/11/24 03:03 73 12 128/92 100 Room Air 03/11/24 02:00 82 15 114/84 100 Room Air 03/11/24 01:21 80 16 124/76 100 Room Air 03/11/24 01:00 83 18 145/82 H 100 Room Air 03/11/24 00:30 83 18 121/72 100 Room Air 03/10/24 23:30 86 14 107/66 100 Room Air 03/10/24 23:23 86 20 119/77 100 Room Air 03/10/24 23:16 88 03/10/24 23:08 81 20 100 Room Air 03/10/24 22:11 36.8 C 100 H 16 145/86 H 100 Laboratory Results Laboratory Results WBC 8.79 K/ul (4.8-10.8) 03/10/24 23:00 RBC 3.41 M/uL (4.20-5.40) L 03/10/24 23:00 Hgb 9.3 g/dl (12.0-16.0) L 03/10/24 23:00 Hct 28.8 % (37.0-47.0) L 03/10/24 23:00 MCV 84.5 fL (80.0-100.0) 03/10/24 23:00 MCH 27.3 pg (25.0-34.0) 03/10/24 23:00 MCHC 32.3 g/dL (32.0-36.0) 03/10/24 23:00 RDW Std Deviation 42.5 fL (36.4-46.3) 03/10/24 23:00 RDW Coeff of Pramod 13.7 % (11.5-14.5) 03/10/24 23:00 Plt Count 332 K/uL (130-400) 03/10/24 23:00 MPV 9.3 fL (9.4-12.4) L 03/10/24 23:00 Immature Gran % (Auto) 0.1 % 03/10/24 23:00 Neut % (Auto) 59.3 % 03/10/24 23:00 Lymph % (Auto) 29.4 % 03/10/24 23:00 [place] % (Auto) 8.2 % 03/10/24 23:00 Eos % (Auto) 2.5 % 03/10/24 23:00 Baso % (Auto) 0.5 % 03/10/24 23:00 Neut # (Auto) 5.22 K/uL (1.40-6.50) 03/10/24 23:00 Lymph # (Auto) 2.58 K/uL (1.20-3.40) 03/10/24 23:00 [place] # (Auto) 0.72 K/uL (0.11-0.59) H 03/10/24 23:00 Eos # (Auto) 0.22 K/uL (0.00-0.50) 03/10/24 23:00 Baso # (Auto) 0.04 K/uL (0.00-0.20) 03/10/24 23:00 Immature Gran # (Auto) 0.01 K/uL (0.01-0.20) 03/10/24 23:00 PT 11.6 Seconds (9.0-12.0) 03/10/24 23:00 INR 1.1 (0.9-1.1) 03/10/24 23:00 APTT 28 Seconds (21-31) 03/10/24 23:00 PTT Ratio 1.0 03/10/24 23:00 Sodium 138 mmol/L (136-145) 03/10/24 23:00 Potassium 4.0 mmol/L (3.5-5.1) 03/10/24 23:00 Chloride 101 mmol/L (98-107) 03/10/24 23:00 Carbon Dioxide 33 mmol/L (21-32) H 03/10/24 23:00 Anion Gap 4 (3-11) 03/10/24 23:00 BUN 9 mg/dl (6-23) 03/10/24 23:00 Creatinine 0.73 mg/dl (0.6-1.2) 03/10/24 23:00 Est Cr Clr Drug Dosing 87.1 ml/min 03/10/24 23:00 eGFR 107.22 03/10/24 23:00 BUN/Creatinine Ratio 12.3 (10-20) 03/10/24 23:00 Glucose 121 mg/dl (70-99(Fasting)) H 03/10/24 23:00 Calcium 9.3 mg/dl (8.6-10.3) 03/10/24 23:00 Total Bilirubin 0.2 mg/dl (0.2-1.0) 03/10/24 23:00 AST 13 U/L (13-39) 03/10/24 23:00 ALT 8 U/L (7-52) 03/10/24 23:00 Alkaline Phosphatase 126 U/L (34-104) H 03/10/24 23:00 Total Protein 6.9 gm/dl (6.0-8.3) 03/10/24 23:00 Albumin 4.0 gm/dl (3.4-5.0) 03/10/24 23:00 Globulin 2.9 gm/dl (2.5-4.0) 03/10/24 23:00 Albumin/Globulin Ratio 1.4 (0.9-2) 03/10/24 23:00 Lipase 11 U/L (11-82) 03/10/24 23:00 HCG, Qual Negative (Negative) 03/10/24 23:00 Urine Color Yellow 03/11/24 00:01 Urine Appearance Cloudy (Clear) A 03/11/24 00:01 Urine pH 6.0 (4.5-7.5) 03/11/24 00:01 Ur Specific [place] 1.017 (1.000-1.030) 03/11/24 00:01 Urine Protein Negative (Negative) 03/11/24 00:01 Urine Glucose (UA) Negative (Negative) 03/11/24 00:01 Urine Ketones Negative (Negative) 03/11/24 00:01 Urine Blood Negative (Negative) 03/11/24 00:01 Urine Nitrite Negative (Negative) 03/11/24 00:01 Urine Bilirubin Negative (Negative) 03/11/24 00:01 Urine Urobilinogen Negative (Negative) 03/11/24 00:01 Ur Leukocyte Esterase Trace (Negative) H 03/11/24 00:01 Urine WBC (Auto) 6-10 /hpf (0-5) H 03/11/24 00:01 Urine RBC (Auto) 0-2 /hpf (0-2) 03/11/24 00:01 U Hyaline Cast (Auto) 0-2 /lpf (0-2) 03/11/24 00:01 U Epithel Cells (Auto) 6-10 /hpf (0-2) H 03/11/24 00:01 Urine Bacteria (Auto) 4+ (None Seen) H 03/11/24 00:01 Impressions Abdomen/Pelvis CT 03/10/24 22:45 Exam(s): CT ABDOMEN + PELVIS With Contrast IV Amt: OPTIRAY 320 94ML EXAM: CT Abdomen and Pelvis With Intravenous Contrast CLINICAL HISTORY: Reason for exam: Painful perianal mass, h/o cancer, eval abscess. TECHNIQUE: Axial computed tomography images of the abdomen and pelvis with intravenous contrast. Automated exposure control was utilized for the study. A dose lowering technique was utilized adhering to the principles of ALARA. CONTRAST: Patient received OPTIRAY 320 94ML of IV contrast COMPARISON: CT February 15, 2024. FINDINGS: Lung bases: Unremarkable. No mass. No consolidation. ABDOMEN: Liver: Indeterminate low-attenuation lesion in the RIGHT hepatic lobe measures 2.1 x 1.6 cm and 2.4 x 2.1 cm adjacent to the IVC, both are increasing in size when compared to February 15, 2024. Nonemergent MRI recommended. Gallbladder and bile ducts: Unremarkable. No calcified stones. No ductal dilation. Pancreas: Unremarkable. No mass. No ductal dilation. Spleen: Unremarkable. No splenomegaly. Adrenals: Unremarkable. No mass. Kidneys and ureters: Unremarkable. No solid mass. No hydronephrosis. Stomach and bowel: Moderate fecal retention, correlate for constipation. No obstruction. No mucosal thickening. PELVIS: Appendix: No findings to suggest acute appendicitis. Bladder: Unremarkable. No mass. Reproductive: Unremarkable as visualized. ABDOMEN and PELVIS: Intraperitoneal space: Unremarkable. No free air. No significant fluid collection. Bones/joints: No acute fracture. No dislocation. Soft tissues: Unremarkable. Vasculature: Unremarkable. No abdominal aortic aneurysm. Lymph nodes: Unremarkable. No enlarged lymph nodes. IMPRESSION: 1. Indeterminate low-attenuation lesion in the RIGHT hepatic lobe measures 2.1 x 1.6 cm and 2.4 x 2.1 cm adjacent to the IVC, both are increasing in size when compared to February 15, 2024. Patient has a history of cancer. Metastasis not excluded. Nonemergent MRI recommended. 2. Moderate fecal retention, correlate for constipation. 3. Severe wall thickening of the rectum measuring up to 2.1 cm. Findings are concerning for rectal cancer versus severe proctitis. Given the presence of low attenuation lesion in the liver, rectal cancer is higher on the differential. Electronically signed by: Sajan Silverio MD 03/11/24 02:27 AM
[2024-03-11] MEDS ORDERED: LORazepam 0.5 MG TAB PO PRN (04:36)
[2024-03-11] MEDS: DOXYCYCLINE HYCLATE 100 MG in DEXTROSE 5% MINI-B 100 ML IV STA (04:57)
[2024-03-11] MEDS ORDERED: hydrOXYzine HCl 10 MG TAB PO PRN (05:35)
[2024-03-11] MEDS: oxyCODONE HCL IR 5 MG TAB (IMMEDIATE RELEASE) PO PRN (06:11)
[2024-03-11 07:36] LABS: Estimated Average Glucose 105 mg/dl; Hemoglobin A1C 5.3 % (4.5-5.6)
[2024-03-11 08:19] LABS: Basophils # (auto) 0.03 K/uL (0.00-0.20); Basophils % (auto) 0.5 %; Eosinophils # (auto) 0.29 K/uL (0.00-0.50); Eosinophils % (auto) 4.7 %; Hematocrit (blood only) 28.5 % (37.0-47.0); Hemoglobin 8.9 g/dl (12.0-16.0); Immature Granulocytes # (auto) 0.01 K/uL (0.01-0.20); Immature Granulocytes % (auto) 0.2 %; Lymphocytes # (auto) 1.94 K/uL (1.20-3.40); Lymphocytes % (auto) 31.8 %; Mean Corpuscular Hemoglobin 26.6 pg (25.0-34.0); Mean Corpuscular Hgb Conc 31.2 g/dL (32.0-36.0); Mean Corpuscular Volume 85.1 fL (80.0-100.0); Mean Platelet Volume 9.3 fL (9.4-12.4); Monocytes % (auto) 9.8 %; Neutrophils # (auto) 3.24 K/uL (1.40-6.50); Platelet Count 275 K/uL (130-400); RDW Coefficient of Variation 13.6 % (11.5-14.5); RDW Standard Deviation 42.4 fL (36.4-46.3); Red Blood Count 3.35 M/uL (4.20-5.40); White Blood Count 6.11 K/ul (4.8-10.8)
[2024-03-11 08:37] LABS: BUN Creatinine Ratio 10.3 (10-20); Creatinine Clr Calc Pharmacy 106.3 ml/min; Potassium 3.9 mmol/L (3.5-5.1)
[2024-03-11 08:41] LABS: Amphetamines+Metham, Urine Pos (Neg); Barbiturates, Urine Neg (Neg); Benzodiazepine, Urine Neg (Neg); Cocaine, Urine Neg (Neg); Fentanyl, Urine Neg (Neg); MDMA (Ecstacy), Urine Pos (Neg); Marijuana, Urine Pos (Neg); Methadone, Urine Neg (Neg); Opiate, Urine Neg (Neg); Phencyclidine, Urine Neg (Neg)
[2024-03-11] MEDS: LACTULOSE SYRUP 20 GM/30 ML UDC PO SCH (08:55)
[2024-03-11] MEDS: POLYETHYLENE (MIRALAX) 17 GM PACK PO SCH (08:58)
[2024-03-11] MEDS: ACETAMINOPHEN 500 MG TAB PO SCH (08:58)
[2024-03-11] MEDS: oxyCODONE HCL 10 MG TABCR (OxyCONTIN) PO SCH (08:58)
[2024-03-11] MEDS: QUEtiapine FUMARATE 100 MG TABLET PO SCH ×2 (09:10→19:56)
[2024-03-11] MEDS: HEPARIN 100 UNIT/ML 5ML FLUSH FLUSH PRN (09:38)
--- NOTE | 2024-03-11 09:55 | Hospitalist Progress Note ---
Date of Service March 11, 2024 Assessment & Plan (1) Cancer related pain: (2) Chronic lower gastrointestinal bleeding: (3) Anal cancer: (4) Metastatic cancer to liver: (5) Chronic blood loss anemia: (6) Depression: (7) Bipolar disorder: Plan Patient with uncontrolled cancer pain as well as ongoing bleeding due to rectal cancer Trial of scheduled OxyContin and as needed oxycodone for breakthrough pain Interventional radiology plan for liver biopsy tomorrow to evaluate metastatic disease Consult radiation oncology to evaluate patient for possible palliative radiation to assist with her pain as well as her bleeding from her rectal cancer Monitor urine culture At this time did not see an obvious need for antibiotics we will hold/discontinue doxycycline Reviewed palliative care note, had been trialing gabapentin Activity as tolerated Admission and Anticipated Discharge Date Admission Date: March 11, 2024 Subjective Patient still has a lot of rectal and low pelvic pain. Discussed her remote IV opioid use. She states that it was 18+ years ago. Has never abused pills. She feels as though she will be able to manage and use of narcotics to control her cancer pain without having significant relapse in her previous narcotic use disorder Physical Exam Physical Exam: Constitutional: Alert, nontoxic, fatigued HEENT: Mucous membranes moist. Lungs: Clear to auscultation, decreased, no wheezes rales or rhonchi CV: S1-S2, regular Abdomen: Soft, nontender, nondistended Extremities: No significant edema Neuro: No focal deficits Psych: Cooperative, normal mood Results & Data Results & Data Vital Signs (Past 12 Hours) Vital Signs Temp Pulse Pulse Resp BP BP BP 03/11/24 07:15 36.3 C L 72 14 102/65 03/11/24 06:00 03/11/24 06:00 36.4 C L 18 139/67 03/11/24 05:00 71 14 123/80 03/11/24 04:00 71 13 127/81 03/11/24 03:12 72 03/11/24 03:03 73 12 128/92 03/11/24 02:00 82 15 114/84 03/11/24 01:21 80 16 124/76 03/11/24 01:00 83 18 145/82 H 03/11/24 00:30 83 18 121/72 03/10/24 23:30 86 14 107/66 03/10/24 23:23 86 20 119/77 03/10/24 23:16 88 03/10/24 23:08 81 20 03/10/24 22:11 36.8 C 100 H 16 145/86 H Pulse Ox O2 Del Method 03/11/24 07:15 99 Room Air 03/11/24 06:00 Room Air 03/11/24 06:00 99 Room Air 03/11/24 05:00 03/11/24 04:00 99 Room Air 03/11/24 03:12 03/11/24 03:03 100 Room Air 03/11/24 02:00 100 Room Air 03/11/24 01:21 100 Room Air 03/11/24 01:00 100 Room Air 03/11/24 00:30 100 Room Air 03/10/24 23:30 100 Room Air 03/10/24 23:23 100 Room Air 03/10/24 23:16 03/10/24 23:08 100 Room Air 03/10/24 22:11 100 Diagnostic Findings Reviewed imaging, laboratory and diagnostic studies. Pertinent findings as bel ow. Hemoglobin 8.9, Overall stable from yesterday Electrolytes within normal limits Creatinine 0.58 Urine drug screen positive for methamphetamine/ecstasy as well as marijuana
[2024-03-11] MEDS: GABAPENTIN 100 MG CAP PO SCH (11:23)
--- NOTE | 2024-03-11 14:12 | Oncology Consultation ---
Date of Consultation March 11, 2024 Assessment & Plan (1) Anal cancer: (2) Chronic lower gastrointestinal bleeding: Plan Recommend palliative care involvement for pain management Agree with outpatient radiation oncology involvement but will need to await liver biopsy to determine if she will need palliative/curative RT She will follow up with Dr Giraldo on discharge History of Present Illness Reason for Consultation: Uncontrolled pain Attending Physician: Oni Lino DO History of Present Illness 38 year old with anal cancer with suspected liver metastases admitted for uncontrolled rectal pain with bleeding. Followed by my colleague (Dr Giraldo) of oncology,radiation oncology and palliative care outpatient. Currently undergoing workup to rule out live metastases. CT on admission revealed moderate fecal retention and liver lesion Allergies Allergy/AdvReac Type Severity Reaction Status Date / Time naloxone Allergy Severe edema Verified 03/09/24 12:49 amoxicillin Allergy Intermediate Hives Verified 03/09/24 12:49 Penicillins Allergy Intermediate Hives Verified 03/09/24 12:49 Sulfa (Sulfonamide Allergy Intermediate Hives Verified 03/09/24 12:49 Antibiotics) Home Medications Medication Instructions Recorded Confirmed Type polyethylene glycol 3350 17 17 g PO QAM Constipation 01/06/24 03/11/24 History gram/dose oral powder acetaminophen 325 mg tablet 650 mg PO QID PRN Pain 02/29/24 03/11/24 History (Tylenol) buprenorphine HCl 8 mg sublingual 8 mg sublingual BID 02/29/24 03/11/24 History tablet ibuprofen 200 mg tablet (Motrin IB) 400 mg PO Q6H PRN Pain 02/29/24 03/11/24 History quetiapine 100 mg tablet 100 mg PO HS Sleep 02/29/24 03/11/24 History oxycodone-acetaminophen 2.5 mg-325 1 tab PO Q8H PRN very severe 03/06/24 03/11/24 Rx mg tablet (Percocet) cancer pain 1 month #90 tabs duloxetine 30 mg capsule,delayed 30 mg PO QAM 03/09/24 03/11/24 History release famotidine 20 mg tablet 20 mg PO DAILY PRN Heartburn 03/11/24 03/11/24 History Patient History Medical History (Updated 03/11/24 @ 09:52 by Oni Lino DO) Pulmonary nodule Hepatic lesion History of anal fissures Hx of fracture (2018) right wrist, no surgery Cancer related pain pt sobbing in severe pain at site of anal cancer/lower back throughout entire call, difficult to understand at times, asked if there was someone else she wanted this rn to speak with, reported, "there is no one else." encouraged to be seen in ed but pt. reports "they don't do anything for me." Asthma no inhalers Anal cancer no chemo or radiation Port-A-Cath in place right, power port Panic disorder Anxiety Depression Bipolar disorder Allergic rhinitis Surgical History (Updated 03/09/24 @ 13:14 by Viri Holder) History of infusaport central venous catheter insertion right side power port History of carpal tunnel surgery of right wrist H/O excision of mass (01/13/24) Under anesthesia excision lesion at anus H/O tubal ligation History of delivery x2 History of tonsillectomy and adenoidectomy Family History Father , 50yo Cancer Pt uncertain of type of cancer Mother , 45yo Myocardial infarction Brother Cancer Pt believes her brother is going through the same thing that she is Brother No problems noted. Brother No problems noted. Sister No problems noted. Son No problems noted. Daughter No problems noted. Daughter No problems noted. Social History (Updated 02/29/24 @ 13:26 by Carolee Weber RN) Smoking Status: Current every day smoker Tobacco Type: Cigarettes Cigarettes Per Day: 4; Second Hand Exposure: No; Do You Dip or Chew Tobacco: No; Tobacco Cessation Education Requested by Patient: No Hx Alcohol Use: No Hx Substance Use: No Preferred Language: Sami Communication Ability: Effective Visual Impairment: No Limitations Hearing Ability: Normal Dsp Engineer Required: No Beliefs That Will Affect Care: None marital status: Legally Current Living Situation: Other Current Living Situation Comment: Roommate current occupational status: unemployed How many Children do You have: 3 Other Information That Helps Us Care for You: No Feels Safe at Home: Yes Safety Concerns: Feels Safe At This Time Diet: regular caffeine: Yes (3 cups/day) during the past year weight has: remained stable Assistive Devices: None Results & Data Vital Signs (Past 12 Hours) Vital Signs Temp Pulse Pulse Resp BP BP BP 03/11/24 07:15 36.3 C L 72 14 102/65 03/11/24 06:00 03/11/24 06:00 36.4 C L 18 139/67 03/11/24 05:00 71 14 123/80 03/11/24 04:00 71 13 127/81 03/11/24 03:12 72 03/11/24 03:03 73 12 128/92 Pulse Ox O2 Del Method 03/11/24 07:15 99 Room Air 03/11/24 06:00 Room Air 03/11/24 06:00 99 Room Air 03/11/24 05:00 03/11/24 04:00 99 Room Air 03/11/24 03:12 03/11/24 03:03 100 Room Air
[2024-03-11] MEDS ORDERED: DOXYCYCLINE HYCLATE 100 MG CAP PO SCH (21:00)
[2024-03-12] MEDS: oxyCODONE HCL 20 MG TABCR (OxyCONTIN) PO SCH (08:11)
--- NOTE | 2024-03-12 08:18 | Radiation OncologyConsultation ---
Date of Consultation March 12, 2024 Assessment & Plan (1) Anal cancer: (2) Cancer related pain: Plan ATTENDING ADDENDUM Assessment: Ms. Dang is a 38-year-old female who presents with a recent diagnosis of very locally advanced anal cancer potential metastatic disease to the liver. The patient has been seen in the outpatient setting regarding the role of radiation therapy by Dr. Middleton. The recommendation was to complete the diagnostic workup including a biopsy of the liver. The general recommendation was for consideration for either palliative radiation therapy or curative intent radiation therapy with chemotherapy. The patient is currently admitted to the hospital for pain management as well as rectal bleeding. The patient did complete the liver biopsy today. Plan: 1. No plan for radiation therapy in the inpatient setting. Agree with recommendations by medical oncology. 2. Follow-up biopsy results from liver biopsy. 3. Continue planning for care in the outpatient setting. 4. Pain management as per primary medical team. 5. Appreciate input from palliative care medicine in the inpatient or outpatient setting. 6. Patient and family encouraged to call us with any further questions or concerns. History of Present Illness Reason for Consultation: Anal cancer. Admitted with lower GI bleeding and pain. Requesting Physician: Oni Lino DO Attending Physician: Oni Lino DO History of Present Illness 12/12/2023. Primary care visit (). Painful lump in vaginal area. Examination revealed tenderness and swelling in the perineum between the vagina and rectum. Patient was referred to gynecology. CT scan ordered. 01/06/2024. CT of the abdomen and pelvis. Possible fluid in the region of the rectum without definite abscess. 01/09/2024. Gynecologic consultation (Dr. Clemens). Perianal mass was noted. Patient was prescribed metronidazole and Cipro. Question possible hemorrhoidal issue or a fissure. 01/11/2024. Surgical consultation (Dr. Harrington). This felt to be an anal mass and excision was scheduled. 01/19/2024. Under anesthesia excision of lesion/post hemorrhoid. 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 01/26/2024. Surgical follow-up. Review of pathology. Patient is referred to oncology. Prescription given for tramadol. 01/28/2024. Emergency room evaluation due to rectal pain. 01/30/2024. Medical oncology consultation (Dr. Wilhelm). Anal carcinoma which will require chemotherapy and radiation. Percocet was prescribed for pain. Palliative care consultation. MRI of the abdomen and pelvis. Chest CT. Order written for port to be placed. Referral to radiation oncology. She is prescribed Diflucan for vaginal itching. 02/02/2024. CT of the chest, abdomen and pelvis. 1. Diffuse thickening of the anal canal representing the known primary neoplasm. Multiple mesorectal lymph nodes with enlarged right mesorectal lymph node concerning for metastasis. 2. Low-density hepatic lesions, indeterminate. Further evaluation is recommended with an MRI of the abdomen without and with contrast using liver mass protocol. 3. Multiple small bilateral lung nodules. These could be post infectious/post inflammatory or metastatic. 4. Multifocal fat stranding in the abdomen on either side of the midline most likely related to subcutaneousinjections. 5. Left ovarian cystic lesion with layering high density in the left hemipelvis incompletely characterized on thecurrent examination. 6. Enteric contrast in the esophagus representing gastroesophageal reflux disease. 02/02/2024. MRI of the pelvis. Low rectal/anal mass, T4b with mesorectal lymph node metastases. Anal sphincter involvement: Yes. MRF: N/A EMVI: No. 02/13/2024. Medical oncology follow-up. Plan for mitomycin and 5-FU with radiation. Radiation oncology referral placed. 02/29/2024. Patient seen in radiation oncology for evaluation and discussion of treatment options and recommendations and staging options and recommendations. 03/07/2024. Patient was scheduled for PET/CT. She rescheduled the appointment for 03/15/2024. 03/11/2024. Patient presented to the emergency room due to rectal bleeding and pain. She had been prescribed pain medications. There were some issues with getting this filled and picking them up. The pain steadily increased so she presented to the emergency room. She continues have rectal bleeding with bowel movements. Passage of clots. She is typically having 1 bowel movement per day. No complaint of seepage or bleeding between bowel movements. Due to increasing pain and concern for bleeding she presented to the emergency room. Hemoglobin was 9.3. This was rechecked again today and was 8.9. This morning she gives a pain level of 9 out of 10. She has not received pain medication yet this morning. When I asked what her pain level was last evening after having pain medication she gave a pain level of 7 out of 10. She does have a liver lesion. There is plans for a liver biopsy. 03/10/2024. CT of the abdomen and pelvis. 1. Indeterminate low-attenuation lesion in the RIGHT hepatic lobe measures 2.1 x 1.6 cm and 2.4 x 2.1 cm adjacent to the IVC, both are increasing in size when compared to February 15, 2024. Patient has a history of cancer. Metastasis not excluded. Nonemergent MRI recommended. 2. Moderate fecal retention, correlate for constipation. CT Scan Report ADDENDUM: Exam(s): CT ABDOMEN + PELVIS With Contrast IV Amt: OPTIRAY 320 94ML. Severe wall thickening of the rectum measuring up to 2.1 cm. Findings are concerning for rectal cancer versus severe proctitis. Given the presence of low attenuation lesion in the liver, rectal cancer is higher on the differential. Allergies Allergy/AdvReac Type Severity Reaction Status Date / Time naloxone Allergy Severe edema Verified 03/09/24 12:49 amoxicillin Allergy Intermediate Hives Verified 03/09/24 12:49 Penicillins Allergy Intermediate Hives Verified 03/09/24 12:49 Sulfa (Sulfonamide Allergy Intermediate Hives Verified 03/09/24 12:49 Antibiotics) Home Medications Medication Instructions Recorded Confirmed Type polyethylene glycol 3350 17 17 g PO QAM Constipation 01/06/24 03/11/24 History gram/dose oral powder buprenorphine HCl 8 mg sublingual 8 mg sublingual BID 02/29/24 03/11/24 History tablet quetiapine 100 mg tablet 100 mg PO HS Sleep 02/29/24 03/11/24 History duloxetine 30 mg capsule,delayed 30 mg PO QAM 03/09/24 03/11/24 History release famotidine 20 mg tablet 20 mg PO DAILY PRN Heartburn 03/11/24 03/11/24 History acetaminophen 500 mg tablet 1,000 mg (2 x 500 mg) PO TID 30 03/12/24 Rx (Tylenol Extra Strength) days #180 tabs fentanyl 25 mcg/hr transdermal 1 patch transdermal Q72H #5 ea 03/12/24 Rx patch gabapentin 100 mg capsule 100 mg PO Q8H #30 caps 03/12/24 Rx (Neurontin) lactulose 20 gram/30 mL oral 20 g (30 mL) PO DAILY #1,200 mL 03/12/24 Rx solution oxycodone 10 mg tablet 10 mg PO TID PRN pain #10 tabs 03/12/24 Rx sennosides 8.6 mg-docusate sodium 1 tab-cap PO BID #60 tabs 03/12/24 Rx 50 mg tablet (Senna with Docusate Sodium) Patient History Medical History (Updated 03/12/24 @ 13:34 by Oni Lino DO) Pulmonary nodule Hepatic lesion History of anal fissures Hx of fracture (2018) right wrist, no surgery Cancer related pain pt sobbing in severe pain at site of anal cancer/lower back throughout entire call, difficult to understand at times, asked if there was someone else she wanted this rn to speak with, reported, "there is no one else." encouraged to be seen in ed but pt. reports "they don't do anything for me." Asthma no inhalers Anal cancer no chemo or radiation Port-A-Cath in place right, power port Panic disorder Anxiety Depression Bipolar disorder Allergic rhinitis Surgical History (Updated 03/09/24 @ 13:14 by Viri Holder) History of infusaport central venous catheter insertion right side power port History of carpal tunnel surgery of right wrist H/O excision of mass (01/13/24) Under anesthesia excision lesion at anus H/O tubal ligation History of delivery x2 History of tonsillectomy and adenoidectomy Family History Father , 50yo Cancer Pt uncertain of type of cancer Mother , 45yo Myocardial infarction Brother Cancer Pt believes her brother is going through the same thing that she is Brother No problems noted. Brother No problems noted. Sister No problems noted. Son No problems noted. Daughter No problems noted. Daughter No problems noted. Social History (Updated 02/29/24 @ 13:26 by Carolee Weber RN) Smoking Status: Current every day smoker Tobacco Type: Cigarettes Cigarettes Per Day: 4; Second Hand Exposure: No; Do You Dip or Chew Tobacco: No; Tobacco Cessation Education Requested by Patient: No Hx Alcohol Use: No Hx Substance Use: No Preferred Language: Maltese Communication Ability: Effective Visual Impairment: No Limitations Hearing Ability: Normal Adventure Challenge Instructor Required: No Beliefs That Will Affect Care: None marital status: Legally Current Living Situation: Other Current Living Situation Comment: Roommate current occupational status: unemployed How many Children do You have: 3 Other Information That Helps Us Care for You: No Feels Safe at Home: Yes Safety Concerns: Feels Safe At This Time Diet: regular caffeine: Yes (3 cups/day) during the past year weight has: remained stable Assistive Devices: None Physical Exam Constitutional: WD/WN, vitals as above Eyes: PERRL, conjunctivae normal, anicteric sclerae ENMT: Ears: no hearing impairment Neck: trachea midline, no thyromegaly Respiratory: normal respiratory effort, lungs clear to auscultation Cardiovascular: RRR, no murmur, no edema Gastrointestinal (Abdomen): normal bowel sounds, soft, nontender, no hepatosplenomegaly Skin: no rashes, warm and dry Psychiatric: A+Ox3, euthymic affect Results (Rad Onc) Pathology Results: were reviewed and pertinent findings noted in HPI Imaging Studies: were reviewed and pertinent findings noted in HPI Time Spent Midlevel I spent [15] minutes in preparation for this follow up evaluation including reviewing all the clinical records, reviewing laboratory studies, pathology reports and imaging results. I spent [20] minutes with direct face to face interaction with the patient and/or family including performing a physical exam and answering all questions. I spent [10] minutes documenting this patient's visit. Attending I spent 5 minutes in preparation for this follow up evaluation including reviewing all the clinical records, reviewing laboratory studies, pathology reports and imaging results. I spent 5 minutes with direct face to face interaction with the patient and/or family including performing a physical exam and answering all questions. I spent 5 minutes documenting this patient's visit. PG Care Time/CCT Total # of Minutes Spent Total Time Spent with Patient: Total time spent is greater than 50% in coordination of care (as documented) at patient's floor/unit and/or counseling patient: [place] [address] IN/OBS CONSULT LVL 5,80M Patient Type Established History Problem Focused Exam Problem Focused Medical Decision Making Low Complexity Diagnoses Anal cancer C21.0 Cancer related pain G89.3
[2024-03-12 08:45] LABS: Hematocrit (blood only) 28.3 % (37.0-47.0); Hemoglobin 9.4 g/dl (12.0-16.0)
[2024-03-12] MEDS ORDERED: fentaNYL citrate PF 100 MCG/2 ML VIAL ONE (09:43)
[2024-03-12] MEDS ORDERED: LIDOCAINE 2% 2 ML VIAL/AMP(20MG/ML) INFIL ONE (09:43)
[2024-03-12] MEDS ORDERED: MIDAZOLAM HCL 1 MG/ML 2ML VIAL ONE (09:43)
[2024-03-12] MEDS ORDERED: PROPOFOL IV EMULSION 10 MG/ML 20 ML VIAL IV ONE (09:43)
--- NOTE | 2024-03-12 10:55 | Ultrasound Report ---
ULTRASOUND GUIDED LIVER CORE BIOPSY INDICATION: Rectal CA; liver lesions PROCEDURE: Procedure and risks were explained. Informed consent was obtained. A final timeout was com pleted. The right upper quadrant was prepped and draped in sterile fashion. 1% lidocaine was utilized for skin anesthesia. The patient received monitored anesthesia care during the procedure. Utilizing ultrasound guidance, a 17-gauge coaxial needle was advanced into the right lobe liver lesio n. Ultrasound images were obtained. An 18-gauge core biopsy needle was advanced, and 2 cores were obt ained and sent to the lab. The coaxial needle was removed and Band-Aid applied. The patient tolerated the procedure well. The patient will recover via anesthesia protocol. IMPRESSION: Right lobe liver lesion core biopsy as above. Performed, dictated, and signed by Korey York PA-C; to be co-signed by Dr. Eric Donnelly. Electronically signed by: Eric Donnelly M.D. 03/12/2024 10:56 AM
[2024-03-12 11:27] VITALS: RESP 16; O2SAT 100
[2024-03-12] MEDS: fentaNYL 25 MCG/HR TDSY TD SCH (11:34)
--- NOTE | 2024-03-12 13:39 | Discharge Summary ---
Discharge Summary Date of Service March 12, 2024 Principal Dx & Hospital Course #1 = Principal Diagnosis (1) Cancer related pain: (2) Chronic lower gastrointestinal bleeding: (3) Anal cancer: (4) Metastatic cancer to liver: (5) Chronic blood loss anemia: (6) Depression: (7) Bipolar disorder: (8) Opioid use disorder: Plan Patient presenting the emergency room with complaints of rectal pain and bleeding. Patient has known rectal cancer, she is involved with oncology, radiation oncology and palliative care already as an outpatient. Patient was admitted to the hospital for concerns of acute blood loss. Her hemoglobin was trended and remained stable. Hematology and radiation oncology saw her. They recommended proceeding with a liver biopsy that was scheduled for 03/12/2024. Any further recommendations were dependent on that biopsy report. Patient underwent liver biopsy on 03/12/2024. She was evaluated post procedure and had no significant postprocedure issues. Her pain was better controlled. I also was in communication with her palliative care provider. Made aware that she is in a opioid use disorder treatment program and is on buprenorphine regularly. Confronted the patient about this she did state that she is on this medication. She also states that she did use marijuana and ecstasy to help relieve her pain prior to admission. I also was able to speak with Dr. Garza from [place]. He controls her buprenorphine. We discussed the treatment plan for her that he was agreeable to he recommended continuing her buprenorphine, adding a Duragesic patch and immediate acting oxycodone 3 times a day for breakthrough pain. He also states that the patient should follow-up in their office either today or tomorrow for a urine drug screen and ongoing discussions of managing her chronic cancer pain. Patient will follow-up with her outpatient oncology team to formulate a plan of care for her. She is having ongoing bloody stools but this will occur anytime she has a bowel movement with this rectal cancer. She has not lost significant amounts of blood and did not require any blood transfusion. She will be on a bowel regimen in the setting of chronic narcotic use as well. Notes For Next Care Provider Recommend regular urine drug screens, need to specifically ask for buprenorphine to be tested in her urine drug screens. Medication Changes From Visit Fentanyl patch added to her regimen Oxycodone IR added to breakthrough pain Senna added for bowel regimen Admission HPI Per Admitting Provider History obtained from patient and records. Medical history significant for anal cancer, chronic anemia (baseline hemoglobin of 11), bronchial asthma, chronic pain on buprenorphine, anxiety/mood disorder, ongoing tobacco abuse Patient recently diagnosed to have anal cancer last month. Staging CT chest abdomen pelvis showed low-density hepatic lesions and multiple small bilateral lung nodules. Outpatient pelvic MRI pelvis showedLow rectal/anal mass with anal sphincter involvement, T4b with mesorectal lymph node metastases. Chemoradiation recommended by [facility] oncologist. 2 [facility] ER visits last month for worsening rectal pain with bleeding. CT from recent ER visit from 02/14 showed 1. Circumferential mucosal thickening is noted in the perianal region inferior to the pelvic floor. The single wall thickness is similar, measuring up to 2.1 cm. However, centrally, the mucosa appears slightly hypoattenuating, suggesting potential intramural edema. No fat stranding in the perirectal or ischiorectal fat. No definite further cranial extension. Similar nonspecific pericolonic lymph nodes adjacent to the hemorrhoidal vasculature. 2. Prominent stool burden throughout the colon. The appearance suggests a component of constipation. 3. There is an ovoid hypoattenuating area in the central aspect of the right lobe of the liver measuring 1.4 x 1.4 x 1.3 cm. This is larger from the most recent examination, and is new from the examination in December. This is a presumed incidental finding; however, the appearance is most consistent with advancing hepatic metastatic disease. Patient seen by [facility] radiation oncologist last 02/28. Specialist recommended staging PET/CT, and liver biopsy of suspicious right liver lobe lesion. Outpatient liver biopsy tentatively scheduled at [facility] tomorrow. Patient recently switched to [facility] for oncology services and [facility] Palliative care this week. Separate prescriptions for fentanyl and Percocet from respective providers for patient's worsening rectal pain could not be picked up from pharmacy until clarification from providers as per patient. Patient stopped taking her Subutex last week on her own thinking this was related to the issue. Think she might have gone into some withdrawal. Patient consulted ER for worsening rectal pain with bleeding. No chest pain, no SOB. No fever, no chills. Denies emesis. 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 Lungs: Clear to auscultation, decreased, no wheezes rales or rhonchi CV: S1-S2, regular Abdomen: Soft, nontender, nondistended Extremities: No significant edema Neuro: No focal deficits Psych: Cooperative, normal mood Updated Medication List Medication Instructions Recorded Confirmed Type polyethylene glycol 3350 17 17 g PO QAM Constipation 01/06/24 03/11/24 History gram/dose oral powder acetaminophen 325 mg tablet 650 mg PO QID PRN Pain 02/29/24 03/11/24 History (Tylenol) buprenorphine HCl 8 mg sublingual 8 mg sublingual BID 02/29/24 03/11/24 History tablet ibuprofen 200 mg tablet (Motrin IB) 400 mg PO Q6H PRN Pain 02/29/24 03/11/24 History quetiapine 100 mg tablet 100 mg PO HS Sleep 02/29/24 03/11/24 History oxycodone-acetaminophen 2.5 mg-325 1 tab PO Q8H PRN very severe 03/06/24 03/11/24 Rx mg tablet (Percocet) cancer pain 1 month #90 tabs duloxetine 30 mg capsule,delayed 30 mg PO QAM 03/09/24 03/11/24 History release famotidine 20 mg tablet 20 mg PO DAILY PRN Heartburn 03/11/24 03/11/24 History acetaminophen 500 mg tablet 1,000 mg (2 x 500 mg) PO TID 30 03/12/24 Rx (Tylenol Extra Strength) days #180 tabs fentanyl 25 mcg/hr transdermal 1 patch transdermal Q72H #5 ea 03/12/24 Rx patch gabapentin 100 mg capsule 100 mg PO Q8H #30 caps 03/12/24 Rx (Neurontin) lactulose 20 gram/30 mL oral 20 g (30 mL) PO DAILY #1,200 mL 03/12/24 Rx solution oxycodone 10 mg tablet 10 mg PO TID PRN pain #10 tabs 03/12/24 Rx sennosides 8.6 mg-docusate sodium 1 tab-cap PO BID #60 tabs 03/12/24 Rx 50 mg tablet (Senna with Docusate Sodium) Hospital Stay Data Consultations 03/11/24 03:22 ED Decision to Admit Stat 03/11/24 04:39 Consult Oncology Routine 03/11/24 07:39 Consult Radiation Oncology Routine Procedures Performed Operation Date: 03/12/24 09:30 Actual Procedures p Ultrasound Liver Biopsy with Anesthesia Sedation - Korey York PA-C Diagnostic Imagining Performed 03/10/24 22:45 CT abd pelvis IV con only Stat 03/12/24 08:00 IR biopsy liver US Routine Reviewed imaging, laboratory and diagnostic studies. Pertinent findings as below. Hemoglobin 9.4, Stable during hospitalization Electrolytes all within normal limits Creatinine 0.58 Urine drug screen positive for amphetamine/ecstasy/marijuana Pending Results Patient Have Any Pending Studies at Discharge: Yes Discharge Instructions Given to Patient (Per Discharging Provider) You will need close follow-up with all of your specialists including oncology, radiation oncology, PCP, palliative care Total Time Total Time Spent Total Time Spent (In Minutes): 50
[2024-03-12 16:16] VITALS: BP 116/70; PULSE 73; TEMP 98.2
[2024-03-12] MEDS: CHECK fentaNYL PATCH PLACEMENT SCH (16:23)
[2024-03-15 17:52] LABS: Amphetamine Urine, Confirm 3658 ng/mL (<250); MDA negative; MDEA negative; MDMA (Ecstasy) Urine, Confirm negative; Marijuana Quant, GCMS Urine 267 ng/mL (<5); Methamphetamine, Ur Confirm >15000 ng/mL (<250)
== END 2024-03-12 18:19 | disposition home or self-care (01) | DRG 378 ==
LOC: ED 22:07 → 3W 03-11 04:36